=== PATIENT | male | born 1955 | race Caucasian/White ===

== ENCOUNTER 2017-05-05 12:14 | Emergency (ER) | payer BC, OTHER ==
[2017-05-05 12:46] VITALS: BP 127/62
--- NOTE | 2017-05-05 12:50 | UC ---
Throat Pain/Nasal Tacho HPI - HPI Summary HPI Summary: worsening sinus pain congestion drainage over the past 3 weeks - History of Current Complaint Chief Complaint: UCGeneralIllness Stated Complaint: SINUS UPPER RESPIRATORY Time Seen by Provider: 05/05/17 12:42 Hx Obtained From: Patient Onset/Duration: Gradual Onset, Lasting Weeks - 3, Worse Since - past few days Severity: Moderate Pain Intensity: 6 Pain Scale Used: 0-10 Numeric Cough: Nonproductive Associated Signs & Symptoms: Positive: Sinus Discomfort, Nasal Discharge - Allergies/Home Medications Allergies/Adverse Reactions: Allergies Allergy/AdvReac Type Severity Reaction Status Date / Time Cephalexin [From [facility]] Allergy Intermediate Rash Verified 05/05/17 12:38 Home Medications: Home Medications Rivaroxaban TAB(*) [Xarelto 20 mg] 20 mg PO DAILY 05/05/17 [History Confirmed ] Sacubitril-Valsartan [Entresto 24-26 mg] 1 tab PO DAILY 05/05/17 [History Confirmed 05/05/17] Sertraline* [Zoloft*] 50 mg PO DAILY 05/05/17 [History Confirmed 05/05/17] Sitaglip/MlsveinIG094/1000(NR) [Janumet XR 100/1000 (NF)] 1 tab PO DAILY [History Confirmed 05/05/17] Sotalol TAB* [Betapace 80 MG TAB*] 80 mg PO BID 05/05/17 [History Confirmed ] Spironolactone TAB* [Aldactone TAB 25 MG*] 25 mg PO DAILY 05/05/17 [History Confirmed 05/05/17] PMH/Surg Hx/FS Hx/Imm Hx Previously Healthy: No Cardiovascular History: Cardiac Disease, Hypertension, Congestive Heart Failure , Atrial Fibrillation - Surgical History Surgical History: Yes Surgery Procedure, Year, and Place: ARTHROSCOPY bilat knees, TONSILLECTOMY, TENDON TRANSPLANT KNEE CAP (L) - Family History Known Family History: Positive: None - Social History Occupation: Employed Full-time Lives: With Family Alcohol Use: None Substance Use Type: None Substance Use Comment - Amount & Last Used: 2-3 mos ago for back injury Smoking Status (MU): Never Smoked Tobacco Review of Systems Constitutional: Negative Skin: Negative Eyes: Negative ENT: Negative, Sore Throat, Nasal Discharge, Sinus Congestion, Sinus Pain/ Tenderness Respiratory: Negative, Cough Cardiovascular: Negative Gastrointestinal: Negative Genitourinary: Negative Motor: Negative Neurovascular: Negative Musculoskeletal: Negative Neurological: Negative Psychological: Negative Is Patient Immunocompromised?: No All Other Systems Reviewed And Are Negative: Yes Physical Exam Triage Information Reviewed: Yes Appearance: Well-Appearing, No Pain Distress, Well-Nourished Vital Signs: Initial Vital Signs Temp 98.6 F 05/05/17 12:42 Pulse 61 05/05/17 12:42 Resp 16 05/05/17 12:42 BP 127/62 05/05/17 12:42 Pulse Ox 98 05/05/17 12:42 Vital Signs Reviewed: Yes Eye Exam: Normal Eyes: Positive: Conjunctiva Clear ENT Exam: Normal ENT: Positive: Normal ENT inspection, Hearing grossly normal, Pharynx normal, TMs normal. Negative: Nasal congestion, Nasal drainage, Trismus, Muffled/ hoarse voice Dental Exam: Normal Neck exam: Normal Neck: Positive: Supple, Nontender, No Lymphadenopathy Respiratory Exam: Normal Respiratory: Positive: Chest non-tender, Lungs clear, Normal breath sounds, No respiratory distress, No accessory muscle use Cardiovascular Exam: Normal Cardiovascular: Positive: RRR, No Murmur, Pulses Normal, Brisk Capillary Refill Musculoskeletal Exam: Normal Musculoskeletal: Positive: Strength Intact, ROM Intact, No Edema Neurological Exam: Normal Neurological: Positive: Alert, Muscle Tone Normal Psychological Exam: Normal Skin Exam: Normal Throat Pain/Nasal Course/Dx - Course Assessment/Plan: Augmentin, flonase, increase fluids, follow with pcp prn - Differential Dx/Diagnosis Provider Diagnoses: Acute Bacterial Sinusitis Discharge - Discharge Plan Condition: Stable Disposition: HOME Prescriptions: Amoxicillin/Clavulanate TAB* [Augmentin TAB 875*] 875 mg PO BID #20 tab Fluticasone NASAL SPRAY 50MCG* [Flonase NASAL SPRAY 50MCG*] 2 spray BOTH NARES DAILY #1 btl Patient Education Materials: Sinusitis (ED), How to Use Nasal [place] (ED) Referrals: DEMIAN Butler [Medical Doctor] - If Needed
== END 2017-05-05 13:13 | disposition home or self-care (01) ==
LOC: UCCORT 12:14
DX: J01.90 Acute sinusitis, unspecified (principal)
CPT/HCPCS: 99202; G0463